=== PATIENT | male | born 1990 | race Caucasian/White ===

== ENCOUNTER 2017-01-04 15:49 | Inpatient (IN) | payer OTHER ==
--- NOTE | 2017-01-04 17:16 | EDPHY ---
H & P Stated Complaint: SI/hx of depression/dx scabies is "freaking out" Source: Patient Exam Limitations: No limitations - Personal History Current Tetanus/Diphtheria Vaccine: Yes - Medical/Surgical History Hx Asthma: No Hx Chronic Respiratory Disease: No Hx Diabetes: No Hx Cardiac Disease: No Hx Renal Disease: No Hx Cirrhosis: No Hx Alcoholism: No Hx HIV/AIDS: No Hx Splenectomy or Spleen Trauma: No Other PMH: depression - Social History Smoking Status: Current every day smoker HPI/ROS: CHIEF COMPLAINT: Depression, suicidal ideation, possible scabies HISTORY OF PRESENT ILLNESS: Patient presents with history scabies diagnosed 2 weeks ago. He was prescribed by from acting by his physician in [place]. He applied this and says that has not helped. He says that the scabies have persisted between his toes and his fingers. Since that time he has felt increasingly depressed and suicidal. He has a plan of hanging himself. He says he is suicidal because he has been depressed about having scabies for the rest of his life as he has "read about it online." This plan was to hang himself. He are he purchased a rope. He was fully intent on doing so and then brought himself to the emergency department. PSYCHIATRIC DIAGNOSES: Depression, suicide attempt, anxiety PRIOR PSYCHIATRIC EVALUATIONS: In [place] and [place], inpatient for suicide attempt M1/DETAINER: 01/04/2017, 5:[address] Millan REVIEW OF SYSTEMS: Ten systems reviewed and are negative unless otherwise noted in the HPI EXAMINATION General Appearance: Alert, no distress, fidgeting Head: normocephalic, atraumatic Eyes: Pupils equal and round, no conjunctival pallor or injection ENT, Mouth: Mucous membranes moist. Airway patent Neck: Normal inspection, supple, non-tender Respiratory: Lungs are clear to auscultation no wheeze, rhonchi or crackles Cardiovascular: Regular rate and rhythm. No murmur. Pulses intact distally Neurological: A&O, nonfocal, normal gait Skin: Warm and dry, no rash. Mild areas of excoriation to the top of the feet and hands. No nits. No burrows. No obvious evidence of scabies. Extremities: Nontender, no pedal edema Psychiatric: Mood and affect normal DIFFERENTIAL DIAGNOSES: Including but not limited to depression, suicidal ideation, suicide attempt, anxiety, schizoaffective, psychosis, schizophrenia MDM: 5:05 p.m. Depression with thoughts of self-harm. He has a plan to hang himself. He says he has the rope and has full intent to do so. Brought himself in. He has a history of depression and anxiety. He has history of previous suicide attempt by overdose on prescription medications. Previous psychiatric care was in [place] and in [place]. Recently moved [place] and has no care here. He has been placed on an M1 hold. He is cooperative thus far. 6:30 p.m. Patient has been medically cleared and is awaiting evaluation. He remains calm and cooperative. 7:45 p.m. Patient has been evaluated. EPS is attempting to place him [address] [place]. Awaiting their final information. 9:20 p.m. Patient has been accepted to [address] [place] [address]. He is admitted in stable condition. He remains calm and cooperative thus far. SUPERVISION: Patient was evaluated in conjunction with the supervising physician. Please see their note for details. (Luc Umanzor) Constitutional: Initial Vital Signs Temperature (C) 98.1 F 01/04/17 15:55 Heart Rate 94 01/04/17 15:55 Respiratory Rate 18 01/04/17 15:55 Blood Pressure 145/90 H 01/04/17 15:55 O2 Sat (%) 95 01/04/17 15:55 O2 Delivery Mode Room Air Allergies/Adverse Reactions: No Known Allergies Allergy (Unverified 01/04/17 15:54) Home Medications: Medication Instructions Recorded Ivermectin 01/04/17 Medical Decision Making Other Provider: The patient was evaluated by Psychiatry. He has been accepted for inpatient psychiatric hospitalization at [facility] by Dr. Patterson. (Aryan Millan) - Data Points Laboratory Results: Laboratory Results 01/04/17 17:00 01/04/17 17:00 01/04/17 01/04/17 01/04/17 17:35 17:00 17:00 WBC 7.26 10^3/uL 10^3/uL (3.80-9.50) RBC 4.82 10^6/uL 10^6/uL (4.40-6.38) Hgb 15.5 g/dL g/dL (13.7-17.5) Hct 42.8 % % (40.0-51.0) MCV 88.8 fL fL (81.5-99.8) MCH 32.2 pg pg (27.9-34.1) MCHC 36.2 g/dL g/dL (32.4-36.7) RDW 12.3 % % (11.5-15.2) Plt Count 278 10^3/uL 10^3/uL (150-400) MPV 10.0 fL fL (8.7-11.7) Neut % (Auto) 57.7 % % (39.3-74.2) Lymph % (Auto) 32.1 % % (15.0-45.0) [place] % (Auto) 8.1 % % (4.5-13.0) Eos % (Auto) 1.7 % % (0.6-7.6) Baso % (Auto) 0.3 % % (0.3-1.7) Nucleat RBC Rel Count 0.0 % % (0.0-0.2) Absolute Neuts (auto) 4.19 10^3/uL 10^3/uL (1.70-6.50) Absolute Lymphs (auto) 2.33 10^3/uL 10^3/uL (1.00-3.00) Absolute Monos (auto) 0.59 10^3/uL 10^3/uL (0.30-0.80) Absolute Eos (auto) 0.12 10^3/uL 10^3/uL (0.03-0.40) Absolute Basos (auto) 0.02 10^3/uL 10^3/uL (0.02-0.10) Absolute Nucleated RBC 0.00 10^3/uL 10^3/uL (0-0.01) Immature Gran % 0.1 % % (0.0-1.1) Immature Gran # 0.01 10^3/uL 10^3/uL (0.00-0.10) Sodium 140 mEq/L mEq/L (134-144) Potassium 3.7 mEq/L mEq/L (3.5-5.2) Chloride 104 mEq/L mEq/L (97-110) Carbon Dioxide 23 mEq/l mEq/l (22-31) Anion Gap 13 mEq/L mEq/L (8-16) BUN 9 mg/dL mg/dL (7-23) Creatinine 0.8 mg/dL mg/dL (0.7-1.3) Estimated GFR > 60 Glucose 82 mg/dL mg/dL (70-100) Calcium 10.4 mg/dL mg/dL (8.5-10.4) Salicylates < 1.0 mg/dL L mg/dL (2.0-20.0) Urine Opiates Screen NEGATIVE (NEGATIVE) Acetaminophen < 10 mcg/mL L mcg/mL (10-30) Urine Barbiturates NEGATIVE (NEGATIVE) Ur Phencyclidine Scrn NEGATIVE (NEGATIVE) Ur Amphetamine Screen NEGATIVE (NEGATIVE) U Benzodiazepines Scrn NEGATIVE (NEGATIVE) Urine Cocaine Screen NEGATIVE (NEGATIVE) U Marijuana (THC) Screen NON-NEGATIVE H (NEGATIVE) Ethyl Alcohol < 10 mg/dL mg/dL (0-10) Departure - Departure Disposition: [facility] IP Clinical Impression: Suicidal ideation Condition: Good Referrals: NONE *PRIMARY CARE P,. [Primary Care Provider] - As per Instructions
[2017-01-04 17:21] LABS: % IMMATURE GRANULYOCYTES 0.1 % (0.0-1.1); ABSOLUTE IMMATURE GRANULOCYTES 0.01 10^3/uL (0.00-0.10); ADD DIFF? NO; ADD MORPH? NO; ADD SCAN? NO; ATYPICAL LYMPHOCYTE FLAG 10 (0-99); FRAGMENT RBC FLAG 0 (0-99); HEMATOCRIT 42.8 % (40.0-51.0); HEMOGLOBIN 15.5 g/dL (13.7-17.5); LEFT SHIFT FLG 0 (0-99); LIPEMIA HEMOLYSIS FLAG 90 (0-99); MEAN CELL HEMOGLOBIN 32.2 pg (27.9-34.1); MEAN CELL HEMOGLOBIN CONCENTR. 36.2 g/dL (32.4-36.7); MEAN CELL VOLUME 88.8 fL (81.5-99.8); PLATELET CLUMPS FLAG 0 (0-99); PLATELET COUNT 278 10^3/uL (150-400); RED BLOOD CELL COUNT 4.82 10^6/uL (4.40-6.38); RED CELL DISTRIBUTION WIDTH 12.3 % (11.5-15.2)
[2017-01-04 17:36] LABS: ANION GAP 13 mEq/L (8-16); CALCIUM 10.4 mg/dL (8.5-10.4); CARBON DIOXIDE 23 mEq/l (22-31); CHLORIDE 104 mEq/L (97-110); CREATININE 0.8 mg/dL (0.7-1.3); ETHANOL SERUM < 10 mg/dL (0-10); GLOMERULAR FILTRATION RATE > 60; GLUCOSE 82 mg/dL (70-100); POTASSIUM 3.7 mEq/L (3.5-5.2); SALICYLATE < 1.0 mg/dL (2.0-20.0); SODIUM 140 mEq/L (134-144)
[2017-01-04] MEDS ORDERED: NICOTINE POLACRILEX 2 MG GUM B PRN (23:43)
[2017-01-04] MEDS ORDERED: ACETAMINOPHEN 325 MG TAB PO PRN (23:43)
[2017-01-04] MEDS ORDERED: MAG HYDROX/AL HYDROX/SIMETH 30 ML UDCUP PO PRN (23:43)
[2017-01-04] MEDS ORDERED: MAGNESIUM HYDROXIDE 30 ML UDCUP PO PRN (23:43)
[2017-01-04] MEDS ORDERED: OLANZapine 5 MG TAB PO PRN (23:45)
[2017-01-05] MEDS: ESCITALOPRAM OXALATE 10 MG TAB PO SCH (11:39)
[2017-01-05] MEDS: LORazepam 0.5 MG TAB PO PRN (11:39)
--- NOTE | 2017-01-05 15:20 | BCON ---
[f rep st] BEHAVIORAL HEALTH CONSULTATION INTERNAL MEDICINE CONSULTATION DATE OF CONSULTATION: 01/05/2017 REFERRING PHYSICIAN: Stefano Patterson MD REASON FOR CONSULTATION: Medical clearance for inpatient behavioral health stay. HISTORY OF PRESENT ILLNESS: The patient presented to the [facility] Emergency Department yesterday complaining of suicidal ideation. He had been triggered by a diagnosis of scabies, and concerned that it had not been effectively treated, and he might have scabies for life. The Emergency Department evaluation did not find signs of active scabies. He was evaluated by the mental health team and admitted for further psychiatric care. He currently is without any acute complaints. He reports that the itching is still present. He is not seeing new burrows, and itching is improving. PAST MEDICAL HISTORY: He has a history of depression. MEDICATIONS: He was not on any medications other than recently being treated with permethrin and ivermectin for scabies. PAST SURGICAL HISTORY: He denies any history of surgeries. ALLERGIES: No known drug allergies. SOCIAL HISTORY: He uses alcohol and smokes tobacco. He has recently moved to [place] to continue studies at the [employer], where he is enrolling as a [employer] student. He lives with roommates. FAMILY HISTORY: Noncontributory. REVIEW OF SYSTEMS: Other than still having some itching on his skin, a 10- point review of systems was negative. PHYSICAL EXAM: VITALS: Blood pressure is 127/58; this was yesterday at midnight. Heart rate is 68, respiratory rate is 14, oxygen saturation is 96% on room air, temperature is 36.6 degrees centigrade. GENERAL: This is a well- nourished, well-developed man, who appears his chronologic age, well-groomed, cooperative, and in no acute distress. HEENT: Extraocular movements are intact. Pupils are equal, round, and reactive to light. Mucous membranes are moist. Dentition is in good condition. The airway is uncrowded, Mallampati class 1. NECK: Supple. HEART: Regular rate and rhythm with no murmurs, rubs , or gallops. LUNGS: Clear to auscultation bilaterally. ABDOMEN: Soft, nontender, nondistended with normoactive bowel sounds. EXTREMITIES: There is no cyanosis, clubbing, or edema. NEUROLOGIC: He is alert and oriented x3. Cranial nerves 2-12 are grossly intact. There is no focal weakness and gait is within normal limits. LABORATORY STUDIES: Drawn in the Emergency Department: CBC was completely within normal limits. Serum chemistry was also within normal limits. Toxicology screen in the serum was negative for salicylates, acetaminophen, and ethyl alcohol. Toxicology screen in the urine was non-negative for marijuana. ASSESSMENT: 1. Mental health issues. Pending further evaluation and management per Psychiatry and the mental health team. 2. Scabies. Status post treatment with what is likely a very effective combination of medications with no signs of active scabies at present. He plans to follow up with a lumber carrier after his discharge to assure that he has been cleared of the parasite. PLAN: I see no medical contraindications to this patient's continued stay on the Inpatient Behavioral Health Unit or to any psychiatric medications or procedures. Thank you very much for including me in the care of this patient, and please do not hesitate to contact me or the hospitalist service should there be need for further medical evaluation. /[id number]/MODL MTDD
--- NOTE | 2017-01-05 16:40 | BAPA ---
[f rep st] ADMISSION PSYCHIATRIC ASSESSMENT CHIEF COMPLAINT: "I am very overwhelmed." HISTORY OF PRESENT ILLNESS: Patient is a 26-year-old male with a history of depression an d anxiety extending back to early adolescence. He presented to the emergency department yesterday d ue to thoughts of suicide and increasing anxiety. He states that he was having "constant panic ghada cks." He relates this in part to stress over moving to [place] last week. He states that he was tr [place]veling in [place] and feeling fairly normal for about 5 weeks before returning home and then fairly quickly loading up his car and driving from [place] to [place] to begin school. He states that he did not have a place to live when he arrived and so was caught up with the need for finding an apart ment and roommate. He states he was able to do this, however, and is pleased with the situation he found. Despite that, he reports it being a stressful event. He states that, in some ways, he felt guilty about this for not being better prepared. He states that he was diagnosed with scabies about a week ago and was treated with medications which helped. Since he has been anxious over the last 48 hours, he was worried perseveratively that this had returned and this was part of his presentatio n to the emergency department as well. He was reassured by the emergency room staff that he had no evidence of this. The patient reports to me now that, while his mood was stable during his travels in [place], he believes that it is not as good as it was 3 months ago when he discontinued his Effexo r. He states that he did not believe the Effexor was helping but also notes some sexual dysfunction that went with it that was troubling to him. He states that this time he believes that he probably does better historically when he is on an antidepressant and requests a retrial of some form of ant idepressant medication. He complains of generally depressed mood and [id number] anxiety. H e reports generalized anxiety throughout most days but then also some episodic panic attacks. He st ates that these come on suddenly but are more predictable in social settings. He is concerned about his ability to be in school and in new environments without some help for this. He states that the Effexor was helpful in the past for his anxiety but that he had the side effects mentioned above. He had a brief trial of Celexa in the past that was ineffective, but he states he only took it for 1 -2 weeks. This was changed to Effexor when he was admitted to the hospital after an overdose attemp t. He describes frequently disrupted sleep where he will have trouble falling asleep and staying as leep and then will wake up and not feel rested. He feels helpless, hopeless and easily overwhelmed. He also has no social contacts in [place] and has already begun to feel somewhat lonely. His [facility] is his primary support, though he states that their relationship has been a bit strained recently since the unexpected of her boyfriend. PAST PSYCHIATRIC HISTORY: Significant for previous treatment with Celexa and Zoloft in 2016. Medina holley overdosed on the Zoloft was admitted to inpatient psychiatric treatment and given Effexor. He re ports taking this for 8 months and states that it did not seem to help his mood, but it did help his anxiety. He states after discontinuing it, however, his anxiety significantly worsened. He was in individual weekly psychotherapy on a regular basis prior to about a month ago and states this was v jay helpful. He is wanting to return to that here. ALLERGIES: No known medical allergies. CURRENT MEDICATIONS: None. PAST MEDICAL HISTORY: Significant for chronic low back pain due to an injury occurring in the [employer], otherwise unremarkable. SOCIAL HISTORY: Patient is single, not currently in a relationship. He identifies as being a homos exual. He is 60% service connected for Mental Health and back injury. He receives service-connecte d disability benefits for this. He was born and raised in [place], and his mother continues to live there. He has a brother who lives in [place] and another brother who I do not know of his where abouts. He states that his mother's long-time boyfriend unexpectedly recently only 2 days afte r being diagnosed with lung cancer. The patient states he had been sick for some time but had not g one in for evaluation and that, when he was told that he had likely lung cancer, he in his slee p 2 days later. The patient is currently enrolled at the [employer] and will have likel y sophomore or genia status. He had 3 years of credits from college in [place] where he had gone t o school studying linguistics. He reports quitting this after not doing well during his genia year . 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 SUBSTANCE ABUSE HISTORY: Patient states that he uses marijuana 2-3 times per week and has used it d aily in the past. He denies any other substance use. FAMILY HISTORY: Significant for depression and anxiety in his mother. His brother reportedly attem pted suicide and was diagnosed with bipolar disorder. ADMISSION LABORATORY: CBC is normal. Serum chemistries are normal. Urine drug screen is positive for marijuana. MENTAL STATUS EXAMINATION: Reveals a thin, healthy-appearing male. He is neatly and appr opriately groomed. He interacts well with the examiner, displaying good social skills and a calm an d pleasant demeanor. His affect is somewhat constricted, dysphoric, stable and appropriate. His mo od is described as "depressed and anxious." His thought process is linear and goal directed. His t hought content reveals no evidence of psychosis. He is alert and oriented to person, place, time, a nd situation, and his sensorium is clear. His intellect appears to be average to above average, as evidenced by his educational and occupational histories, fund of knowledge, and vocabulary. He cont inues to endorse some thoughts of suicide though states he feels safe on the unit. His insight and judgment appear to be good. IMPRESSION: Major depressive disorder, recurrent, severe, without psychosis. Anxiety disorder, not otherwise specified, possibly attendant to his mood disorder or could represent an atypical panic d isorder. Chronic illness. Recent move. Social isolation. Lack of support. The patient is a pleasant 26-year-old male who presents at this time recently after having moved to [place] from his home in [place]. He had voiced some thoughts of suicide to his mother a nd she directed him to the emergency room which he went of his own volition. He apparently had boug ht rope and tied a noose and was serious about proceeding with harming himself and stated to me pedro schmitt that he came in because he was afraid he would actually do it. He is pleasant and cooperative her e and seems generally willing to participate in therapies in order to improve. I have discussed wit h him at length possible different antidepressants including atypical antipsychotics, as typical ant idepressants have been ineffective for him before. I do believe, however, that he derived more bene fit from the Effexor than he reports as he was stable during that time and has not been stable befor e or after. After discussion of these agents, he states that he is interested in trying Lexapro. T he risks, benefits and alternatives of Lexapro were reviewed with him and we will start at 10 mg. H e was given a 1st dose today. We will also give him a low dose of clonazepam 0.5 mg at h.s. to help with sleep initiation and maintenance and hopefully have some carry-over benefit for anxiety during the day. We will engage the patient in individual, group and milieu psychotherapies and work from the outset on discharge planning and coordination with the [facility] and/or helping him find a ngoc mckenzie therapist and psychiatrist as he has insurance. Estimated length of stay is 3-5 days. /[id number]/MODL
[2017-01-05] MEDS: clonazePAM 0.5 MG TAB PO SCH (21:22)
[2017-01-06] MEDS: LORazepam 0.5 MG TAB PO PRN (07:56)
[2017-01-06] MEDS: ESCITALOPRAM OXALATE 10 MG TAB PO SCH (07:56)
--- NOTE | 2017-01-06 13:37 | SOAPPROG ---
SOAP Progress Note Assessment/Plan: Assessment: Plan: 01/06/17 13:37 Remains anxious, depressed. CCM. Subjective: Pt seen, discussed with staff. In bed after taking lorazepam after breakfast. He reports feeling better last evening, but was intensely anxious this morning. This is due in large part to renewed concern for scabes. Discussed his anxiety and obsessive fears. He reports less SI today, but does not feel safe to leave the hospital with his current level of anxiety. Objective: Vital Signs Temp Pulse Resp BP Pulse Ox 36.9 C 81 14 115/76 95 01/06/17 06:00 01/06/17 06:00 01/06/17 06:00 01/06/17 06:00 01/06/17 06:00 MSE: Moderately anxious, coop. Affect is constricted, stable. Mood is " pretty bad." TP linear. TC reveals no psychosis. SI persists. - Time Spent With Patient Time Spent With Patient: 25" - Pending Discharge Pending Discharge Within 24 Hours: No ICD10 Worksheet Patient Problems: Problems Problem Status Onset Suicidal ideation Acute
[2017-01-06] MEDS: clonazePAM 0.5 MG TAB PO SCH (21:36)
[2017-01-07 06:39] VITALS: RESP 16; O2SAT 96
[2017-01-07] MEDS: ESCITALOPRAM OXALATE 10 MG TAB PO SCH (08:49)
[2017-01-07] MEDS: LORazepam 0.5 MG TAB PO PRN ×2 (09:14→17:33)
--- NOTE | 2017-01-07 15:28 | SOAPPROG ---
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 Had been off medications. Started on Lexapro. Currently on M-1 which expires this evening. 01/07/17 15:16 per staff, slept 7.5 hrs. no behavioral concerns, rating suicidality as 0/10 and hoping to attend classes starting Mon (01/09). On interview, pt reports feeling better since hospitalization in part finds benefit from the structure, which is why being in was also helpful. Has mother as his primary support but did not feel he wanted to burden her with his issues since her recently , and patient was also close to him ( step-father). States it was hard to see his mother be depressed. Enjoyed his travels in [place] for 1 month prior to starting school. Just moved to [place] and found himself luckily able to find an apartment with some roommates. Wants to study linguistics, and expresses hope for discharge in time to start school on Monday. Does request to wait until Monday (tomorrow) for discharge, and agrees to sign in voluntarily. Feels this would help him have less down-time /unstructured time which when too much increases anxiety/depression symptoms. Aware that benefits of Lexapro will take some time for full effect, but denies any s/e and tolerating well. Plans to maintain compliance and f/u with mental health- "I need to see a therapist" in the community and has appt scheduled for 01/17. Has no classes on so this will work. Appropriately asked about how to get meds refilled and how much he'd likely be Rxd at d/c. States he will call [facility] for psychiatrist, or for PCP if needing referral to psych, another [facility] Denies any SI thoughts or plans/intent. States he came in for help before doing anything, and will go to ER or call suicide crisis number if any self harm thoughts return and not feeling safe. Enjoys painting and hiking and plans to engage in this to relax. Discussed THC and effects on mental health. Pt acknowledges THC use increases his anxiety/depr and does not intend to use again. 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 Abstaining from EtOH as well he states. Noted anxiety this AM and requested 0.5mg Ativan with improvement. MSE: Casually dressed, neatly kempt, good eye contact, wearing glasses, nml speech rate/vol, mood "good", affect controlled/euthymic/appropriate to content of interview, thoughts linear/goal-directed. Denied any psychotic sxs, no ah/vh or paranoia. No delusions noted. Denied any SI or any thoughts to harm others. i /j both seem intact. cognition intact conversationally. PLAN: sign in voluntarily plan d/c in AM w/meds, f/u appts Objective: Vital Signs Temp Pulse Resp BP Pulse Ox 37.1 C 87 16 116/70 96 01/07/17 06:00 01/07/17 06:00 01/07/17 06:00 01/07/17 06:00 01/07/17 06:00 - Time Spent With Patient Time Spent With Patient: 45min - Pending Discharge Pending Discharge Within 24 Hours: Yes Pending Discharge Date: 01/08/17 Pending Discharge Time: 11:00 ICD10 Worksheet Patient Problems: Problems Problem Status Onset Suicidal ideation Acute
[2017-01-07] MEDS: clonazePAM 0.5 MG TAB PO SCH (21:16)
[2017-01-08 06:31] VITALS: BP 154/80; PULSE 72; TEMP 97.9
[2017-01-08] MEDS: ESCITALOPRAM OXALATE 10 MG TAB PO SCH (08:34)
[2017-01-08] MEDS: LORazepam 0.5 MG TAB PO PRN ×2 (12:26→12:28)
--- NOTE | 2017-01-08 12:57 | SOAPPROG ---
SOAP Progress Note Assessment/Plan: Assessment: 26yo CM with hx of depr/anxiety, 60%sc vet, recently moved to [place] to start [employer] as a [employer]ia and immediately became overwhelmed and suicidal. Had been off medications. Started on Lexapro. Currently on M-1 which expires this evening. 01/07/17 15:16 per staff, slept 7.5 hrs. no behavioral concerns, rating suicidality as 0/10 and hoping to attend classes starting Mon (01/09). On interview, pt reports feeling better since hospitalization in part finds benefit from the structure, which is why being in was also helpful. Has mother as his primary support but did not feel he wanted to burden her with his issues since her recently , and patient was also close to him ( step-father). States it was hard to see his mother be depressed. Enjoyed his travels in [place] for 1 month prior to starting school. Just moved to [place] and found himself luckily able to find an apartment with some roommates. Wants to study linguistics, and expresses hope for discharge in time to start school on Monday. Does request to wait until Monday (tomorrow) for discharge, and agrees to sign in voluntarily. Feels this would help him have less down-time /unstructured time which when too much increases anxiety/depression symptoms. Aware that benefits of Lexapro will take some time for full effect, but denies any s/e and tolerating well. Plans to maintain compliance and f/u with mental health- "I need to see a therapist" in the community and has appt scheduled for 01/17. Has no classes on so this will work. Appropriately asked about how to get meds refilled and how much he'd likely be Rxd at d/c. States he will call [facility] for psychiatrist, or for PCP if needing referral to psych, another [facility] Denies any SI thoughts or plans/intent. States he came in for help before doing anything, and will go to ER or call suicide crisis number if any self harm thoughts return and not feeling safe. Enjoys painting and hiking and plans to engage in this to relax. Discussed THC and effects on mental health. Pt acknowledges THC use increases his anxiety/depr and does not intend to use again. 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 Abstaining from EtOH as well he states. Noted anxiety this AM and requested 0.5mg Ativan with improvement. MSE: Casually dressed, neatly kempt, good eye contact, wearing glasses, nml speech rate/vol, mood "good", affect controlled/euthymic/appropriate to content of interview, thoughts linear/goal-directed. Denied any psychotic sxs, no ah/vh or paranoia. No delusions noted. Denied any SI or any thoughts to harm others. i /j both seem intact. cognition intact conversationally. PLAN: sign in voluntarily plan d/c in AM w/meds, f/u appts 01/08/17 11:37 per staff, pt slept 9hrs. attending groups. did request Ativan this am for anxiety. Pt reports being ready for d/c, eager to get things ready for start of classes tomorrow. States he became a bit anxious after asked to fill out a lunch menu for tomorrow "just in case" he was still here as a staff said to him. This made him very anxious. Denied feeling depressed or suicidal, however. Future-oriented thinking around attending classes, and planning to f/u with mental health appts. Glad to be establishing MH treatment locally. Denied s/e to Lexapro. Doesn't feel Klonopin 0.5mg hs is having an effect for 24hr. Asks about using it prn. Discussed options- will change dosing to 0.25mg BID for now, and give 2 week supply of meds. Discussed with patient to plan taper down this med (and eventually d/c or have as infrequent prn) as Lexapro benefits for depr/anxiety increase over time, but will need to d/w outpatient psychiatrist which will be important to establish. Pt agreed. MSE: Casually dressed, neatly kempt, good eye contact, with glasses, nml speech rate/vol, mood "a little anxious this morning but better now" and "ready to go" , affect euthymic/appropriate range, thoughts linear/goal-directed. Denied any psychotic sxs, no ah/vh or paranoia. No delusions. Does not feel he has any active scabies as this was evaluated since admission and pt has treated it in past. He has also scheduled a derm appt through [facility]. Denied any SI active or passive, and denied any thoughts to harm others. i/j both intact. cognition intact conversationally. Plan: d/c home. pt will call [facility]. 2wk meds rx provided: lexapro 10mg qd, klonopin 0.25mg bid. instructed to abstain from thc and any etoh/drugs. pt agreed. f/u appts as arranged, intake 01/17 at 1:30 with psychologist, and pt will call [facility] for psychiatrist names or primary providers. derm f/u. agrees he will to go to ER or call 911 or crisis # if any SI and feeling unable to maintain safety. Objective: Vital Signs Temp Pulse Resp BP Pulse Ox 36.6 C 72 16 154/80 H 96 01/08/17 06:00 01/08/17 06:00 01/08/17 06:00 01/08/17 06:00 01/08/17 06:00 - Time Spent With Patient Time Spent With Patient: 35min ICD10 Worksheet Patient Problems: Problems Problem Status Onset Suicidal ideation Acute
--- NOTE | 2017-01-10 08:31 | BDS ---
[f rep st] BEHAVIORAL HEALTH DISCHARGE SUMMARY BRIEF HISTORY: Patient is a 26-year-old, male with a history of depression and anxiety, w efrain presented to the emergency department voluntarily due to thoughts of suicide and increasing anxie ty. He reported having "constant panic attacks" relating this in part to stress over moving to [facility] 1 week earlier. He reports having traveled in [place] and feeling fairly normal for about 5 week s before returning home, then fairly quickly moving, loading up his car and driving from [place] to [place] to begin school. He also was feeling anxious about worry that scabies had returned, statin g he was diagnosed with scabies about a week earlier and was treated with medication but again, was concerned about this returning. He was reassured in the emergency department that there was no evid ence of this and that the treatment was effective. He did report a history of being on Effexor whic h he felt was helpful to some degree, but did not like the sexual dysfunction side effects. He did feel that he historically does better when on an antidepressant and on admission, requested re-trial of an antidepressant medication. Additional stressor was loss of his stepfather whom he felt close to, and difficulty seeing his mother being depressed over this, and also not feeling he can get as much emotional support from his mother during her time of grief. HOSPITAL COURSE: The patient was admitted and was able to discuss recent stressors including a rece nt move to [place] from his home in [place]. He did call his mother for support and voiced some th oughts of suicide to her, stating she directed him to the emergency department to where he presented voluntarily. He did report having bought a rope and tied a noose and felt serious about proceeding with harming himself, but consistently stated he came in for help because he was afraid he would ac tually do it. He was pleasant and cooperative throughout his hospital stay and willing to participa te in treatment and therapies in order to improve. He was attending groups and was compliant with m edication. After different medication options were discussed including atypical antipsychotics, he stated he was interested in a trial of Lexapro. He was started on Lexapro 10 mg p.o. daily with 1st dose on 01/06/2017. He was also started on a low dose of clonazepam 0.5 mg p.o. q.h.s. to help wit h sleep initiation and maintenance and also to hopefully have some carry-over benefit for anxiety du ring the day. He reported tolerating the medications well, on 01/07, he did request 1 p.r.n. of reynaldo azepam 0.5 mg for anxiety and on the day of discharge, requested and received Ativan 1 mg. He did n ot feel that clonazepam antianxiety benefits extended during the day and so prior to discharge, deci ethel was made to divide the dose and prescribe 0.25 mg p.o. b.i.d. until a more therapeutic benefit was achieved from Lexapro for anxiety and depression with plan to consider taper down to discontinua tion on an outpatient basis once established with a provider due to long-term risks of benzodiazepin es and other associated risks. The patient expressed understanding and agreed with plan. Patient a cknowledged smoking marijuana 2 days prior to admission which he felt also contributed to his anxiet y and he reports noting that marijuana does make him feel more anxious instead of the hoped for oppo site effect, so he plans to abstain from any marijuana use, also any other drug or alcohol use. Tatianna washington was proactive in transferring his care to [place] regarding insurance coverage. An intake yimi ointment was made for 01/17/2017 with a psychologist and patient plans to make appointments on and when he does not have any classes scheduled. He asked about establishing care wit a psychiatrist and whether he needs a referral from a primary care physician. He will find out th is information by contacting [facility] on Monday since this information was not available over the [facility]. He will of course plan to contact [facility] to get names of providers he can see for psychiatry and for primary care. He consistently denied any suicidal ideation throughout his hospital stay an d there were no attempts to harm himself. He engaged in group therapies which he found helpful. Wy s M1 hold was set to on 01/07/2017 at around 5 p.m.; however, the patient requested to stay u ntil 01/08, agreeing to sign in voluntarily and preferring to stay 1 more night in the hospital in a structured setting which he states he likes and feels less "down time" with structure would decreas e anxiety. He preferred to be discharged on [place] so that he could focus on getting ready for scho ol which would start Monday. He does not have too much unstructured time. He is 60% service connec lilly for mental health and back injury, and does feel that he can access services at the [facility] or go to the emergency department or call the suicide hotline if he is at all feeling unsafe or any suicidal thoughts recur and does not feel safe. Patient completed a safety plan on the unit and was consiste ntly future oriented and motivated for treatment and expressed good insight into need for ongoing [facility] treatment and medications in order to maintain stability. MENTAL STATUS EXAMINATION AT DISCHARGE: The patient was casually dressed, wearing glasses, neatly g roomed, healthy-appearing male with good eye contact. Normal psychomotor activity and nor mal rate/volume of speech. He was engaging with the examiner appropriately. Mood described as "a l ittle anxious this morning, but better now." He reports increased anxiety on morning of discharge w hen he was asked to fill out a lunch menu for the next day "just in case." He was still here per [facility] and his discharge order was not yet written. Affect was appropriate range, euthymic, and calm. Thought processes were linear and goal directed. No evidence of delusions and patient denied any p sychotic symptoms, no auditory or visual hallucinations and there was no evidence of responding to i nternal stimuli. He denied any suicidal ideation, active or passive, and denied any thoughts of lisandro griselda others. He was alert and oriented to person, place, time, and situation. Cognition was intact and insight/judgment both were felt to be intact. DISCHARGE DIAGNOSIS: Major depressive disorder, recurrent, moderate, improving. Anxiety disorder, unspecified. Chronic illness. Recent move. Recent loss of stepfather. Social isolation. Lack of support locally. DISCHARGE PLAN: The patient was felt to be ready for discharge on 01/08, with plan to call [employer] and arrange his own ride back to his residence. Mental health appointment intake arranged with Dr. Fatoumata katz for 01/17 at 1:30 p.m., who is a clinical psychologist accepting new patients and who takes his insurance. The patient states he spoke with her on the phone and is planning to keep this appointm ent. Plan is also for patient to arrange followup with a psychiatrist and primary care physician michelle pond who accept his insurance. The patient will continue to work on arranging this during the weekday. He states he will also go to [facility] in the meantime since a student is eligible fo r 6-8 visits there. Regarding scabies, he felt reassured that treatment was effective, as both the emergency department physician and hospitalist on admission reassured him there was no evidence of r ecurrence of scabies. The patient felt relieved about this and no longer perseverated on this. He will continue to follow up in the community for any concerns, and did state he has arranged an appoi ntment with Dermatology for followup. Patient stated if he had any recurrence of his thoughts of se lf-harm, any worsening depression or anxiety, he was aware of how to seek help and could do so, incl uding returning to the emergency department, calling the suicide hotline, or going to the crisis [facility]. [facility] additionally [facility]-connected . He was provided with 2 weeks of medication with no refill on written prescription. DISCHARGE MEDICATIONS: Lexapro 10 mg p.o. daily, #14, no refill. Klonopin 0.25 mg p.o. b.i.d., #30 , no refill. Patient was advised to abstain from marijuana and plans to do so as he notes marijuana increases his anxiety and worsens his mental health symptoms. /[id number]/MODL
== END 2017-01-08 13:35 | disposition home or self-care (01) | DRG 880 ==
LOC: BBEH 22:55
PROVIDERS: ADMIT Psychiatry & Neurology Psychiatry; ATTEND Psychiatry & Neurology Behavioral Neurology & Neuropsychiatry
DX: R45.851 Suicidal ideations (principal); F33.1 Major depressive disorder, recurrent, moderate; F41.9 Anxiety disorder, unspecified; F12.980 Cannabis use, unspecified with anxiety disorder; B86 Scabies; M54.5 Low back pain; Z91.5 Personal history of self-harm
CPT/HCPCS: 80305; G0480

== ENCOUNTER 2017-09-18 16:31 | Emergency (ER) | payer OTHER ==
--- NOTE | 2017-09-18 16:41 | EDPHY ---
H & P Time Seen by Provider: 09/18/17 16:35 HPI/ROS: CHIEF COMPLAINT: Facial laceration, head injury HISTORY OF PRESENT ILLNESS: 27-year-old male presents as a limited trauma activation with a head injury and facial laceration. He was skateboarding just prior to arrival, when he fell off the skateboard and landed onto his right side. He struck his head and sustained a laceration. He got up, felt dizzy and thought he might pass out, so he called 911. He is just now starting to have a mild headache and some achiness in his right shoulder. No neck pain. REVIEW OF SYSTEMS: complete 10 point ROS negative except as noted in the HPI - Medical/Surgical History Hx Asthma: No Hx Chronic Respiratory Disease: No Hx Diabetes: No Hx Cardiac Disease: No Hx Renal Disease: No Hx Cirrhosis: No Hx Alcoholism: No Hx HIV/AIDS: No Hx Splenectomy or Spleen Trauma: No Other PMH: depression - Social History Smoking Status: Current every day smoker - Physical Exam Exam: General Appearance: Alert, pleasant Head: 2 cm laceration on the forehead Eyes: No conjunctival erythema, PERRLA, EOMI ENT, Mouth: No hemotympanum, no oral trauma, no bony tenderness Neck: Nontender, full range of motion without pain Respiratory: No chest wall tenderness, lungs clear bilaterally Cardiovascular: Regular rate and rhythm Abdomen: Abdomen is soft and nontender Back: No midline T/L/S tenderness Extremities: Pelvis is stable and nontender; right shoulder-abrasion present, range of motion without pain, no other extremity injury Neurological: A&Ox3, normal motor function, normal sensory exam, cranial nerves intact Psychiatric: Mood and affect normal Constitutional: Initial Vital Signs Temperature (C) 36.6 C 09/18/17 16:38 Heart Rate 80 09/18/17 16:38 Respiratory Rate 18 09/18/17 16:38 Blood Pressure 122/85 H 09/18/17 16:38 O2 Sat (%) 98 09/18/17 16:38 O2 Delivery Mode Room Air Allergies/Adverse Reactions: No Known Allergies Allergy (Unverified 09/18/17 16:37) Home Medications: Medication Instructions Recorded Escitalopram Oxalate [Lexapro 10 10 mg PO DAILY #14 tab 01/08/ MG] Medical Decision Making Procedures: Procedure: Laceration repair. The 2 cm laceration on the forehead was anesthetized using lidocaine. The wound was irrigated, draped and explored to its base with a gloved finger. There were no deep structures involved. No foreign body palpable. The wound was repaired with 6 0 nylon. The wound repair was simple. ED Course/Re-evaluation: This patient presents with a limited trauma activation with a head injury and facial laceration. Neurologic exam is normal and he has a very slight headache. Neuro imaging is not indicated. The trauma was downgraded on patient arrival after my initial evaluation. Sutured by me. Repeat neurologic exam remains normal. Ibuprofen given for slight headache. Head injury precautions given. Differential Diagnosis: Differential diagnosis includes though it is not limited to fracture, intracranial hemorrhage, pneumothorax, hemothorax, intra-abdominal hemorrhage. - Data Points Medications Given: Discontinued Medications Ibuprofen (Motrin) 600 mg PO EDNOW ONE Stop: 09/18/17 16:45 Last Admin: 09/18/17 16:46 Dose: 600 mg Departure - Departure Disposition: Home, Routine, Self-Care Clinical Impression: Facial laceration Qualifiers: Encounter type: initial encounter Qualified Code(s): S01.81XA - Laceration without foreign body of other part of head, initial encounter Condition: Good Instructions: Head Injury (ED), Facial Laceration (ED) Additional Instructions: Return for suture removal in 5 days. Referrals: Azael Rivas MD [place] [place] - As per Instructions
[2017-09-18] MEDS ORDERED: IBUPROFEN 600 MG TAB PO ONE (16:44)
[2017-09-18 16:46] VITALS: BP 122/73
== END 2017-09-18 17:29 | disposition home or self-care (01) ==
LOC: EDUNIT#
PROC: 0HQ1XZZ Repair Face Skin, External Approach (ICD-10-PCS; principal; 2017-09-18)
DX: S01.81XA Laceration without foreign body of other part of head, initial encounter (principal); F17.200 Nicotine dependence, unspecified, uncomplicated; V00.131A Fall from skateboard, initial encounter; Y99.8 Other external cause status; Y93.51 Activity, roller skating (inline) and skateboarding